=== PATIENT | female | born 1950 | race Caucasian/White ===

== ENCOUNTER → 2016-09-17 | Outpatient (CLI) | payer MEDICARE ==
--- NOTE | 2016-09-18 10:38 | MM ---
Reason for exam: screening (asymptomatic). Last mammogram was performed 1 year and 2 months ago. History: Patient is postmenopausal and is nulliparous. Family history of breast cancer in maternal aunt. Benign cyst aspiration of the right breast, 1984. Physical Findings: A clinical breast exam by your physician is recommended on an annual basis and results should be correlated with mammographic findings. MG Screening Mammo w CAD Bilateral CC and MLO view(s) were taken. Prior study comparison: July 25, 2015, bilateral MG screening mammo w CAD. October 15, 2013, bilateral digital screening mammo w/CAD. May 05, 2012, bilateral digital screening mammo w/CAD. The breast tissue is extremely dense which could obscure a lesion on mammography. Finding: There are typically benign round, regional calcifications in the posterior position of the left breast. There is no discrete abnormality. ASSESSMENT: Benign, BI-RAD 2 RECOMMENDATION: Routine screening mammogram of both breasts in 1 year.
== END | disposition home or self-care (01) ==
LOC: RADMAMWWP 09:16
PROVIDERS: ATTEND Internal Medicine
DX: Z12.31 Encounter for screening mammogram for malignant neoplasm of breast (principal)

== ENCOUNTER → 2017-10-17 | Outpatient (CLI) | payer MEDICARE ==
--- NOTE | 2017-10-21 10:18 | MM ---
Reason for exam: screening (asymptomatic). Last mammogram was performed 1 year and 1 month ago. History: Patient is postmenopausal and is nulliparous. Family history of breast cancer in maternal aunt. Benign cyst aspiration of the right breast, 1984. Physical Findings: A clinical breast exam by your physician is recommended on an annual basis and results should be correlated with mammographic findings. MG Screening Mammo w CAD Bilateral CC and MLO view(s) were taken. Prior study comparison: September 17, 2016, bilateral MG screening mammo w CAD. July 25, 2015, bilateral MG screening mammo w CAD. The breast tissue is heterogeneously dense. This may lower the sensitivity of mammography. No suspicious abnormality. No significant changes when compared with prior studies. ASSESSMENT: Negative, BI-RAD 1 RECOMMENDATION: Routine screening mammogram of both breasts in 1 year.
== END | disposition home or self-care (01) ==
LOC: RADMAMWWP 14:22
PROVIDERS: ATTEND Internal Medicine
DX: Z12.31 Encounter for screening mammogram for malignant neoplasm of breast (principal)
CPT/HCPCS: 77067

== ENCOUNTER → 2017-10-20 | Outpatient (CLI) | payer MEDICARE ==
--- NOTE | 2017-10-21 14:35 | BD ---
EXAMINATION TYPE: MG DEXA axial skeleton. DATE OF EXAM: 10/20/2017 COMPARISON: NONE CLINICAL HISTORY: Z78.0 post menopausal without hrt,N95.1 Post menopause sympt Height: 66 Weight: 126.7 FRAX RISK QUESTIONS: Alcohol (3 or more units per day): no Family History (Parent hip fracture): no Glucocorticoids (More than 3mos): no (Ex: prednisone, prednisolone, methylprednisolone, dexamethasone, and hydrocortisone). History of Fracture in Adulthood: no Secondary Osteoporosis: 1. Type 1 Diabetes: no 2. Hyperthyroidism: no 3. Menopause before 45: no 4. Malnutrition: no 5. Chronic liver disease: no Rheumatoid Arthritis: no Current Tobacco Use: no RISK FACTORS HISTORY OF: Family History of Osteoporosis: yes /mother Active: yes Diet low in dairy products/other sources of calcium: no Postmenopausal woman: 50 years old Lost more than 2 inches in height since high school: yes Frequent falls: no Adrenal Insufficiency: no MEDICATIONS: celexa, Prevacol Additional History: EXAM MEASUREMENTS: Bone mineral densitometry was performed using the [employer] System. Bone mineral density as measured about the Lumbar spine is: ----- L1-L4(G/cm2): 0.704 T Score Values are as follows: ----- L2: -4.1 ----- L3: -4.1 ----- L4: -3.9 ----- L1-L4: -4.0 Bone mineral density has: decreased -3.4 % since study of: 05.05.2012 Bone mineral density about the R hip (g/cm2): 0.679 Bone mineral density about the L hip (g/cm2): 0.615 T Score values are as follows: -----R Neck: -2.6 -----L Neck: -3.0 -----R Total: -2.8 -----L Total: -3.2 Bone mineral density has: decreased -6.7 % since study of: 05.05.2012 IMPRESSION: Findings compatible with osteoporosis and increased fracture risk. NOTE: T-SCORE=SD OF THE YOUNG ADULT MEAN.
== END ==
LOC: RADBDWWP 15:59
PROVIDERS: ATTEND Internal Medicine
DX: Z78.0 Asymptomatic menopausal state (principal); N95.1 Menopausal and female climacteric states
CPT/HCPCS: 77080

== ENCOUNTER → 2018-10-21 | Outpatient (CLI) | payer MEDICARE ==
--- NOTE | 2018-10-22 10:40 | MM ---
Reason for exam: screening (asymptomatic). Last mammogram was performed 1 year ago. History: Patient is postmenopausal and is nulliparous. Family history of breast cancer in maternal aunt. Benign cyst aspiration of the right breast, 1984. Physical Findings: A clinical breast exam by your physician is recommended on an annual basis and results should be correlated with mammographic findings. MG 3D Screening Mammo W/Cad Bilateral CC and MLO view(s) were taken. Prior study comparison: October 17, 2017, bilateral MG screening mammo w CAD. September 17, 2016, bilateral MG screening mammo w CAD. The breast tissue is extremely dense which could obscure a lesion on mammography. Benign calcifications in the left breast. No suspicious abnormality. No significant changes when compared with prior studies. ASSESSMENT: Benign, BI-RAD 2 RECOMMENDATION: Routine screening mammogram of both breasts in 1 year.
== END | disposition home or self-care (01) ==
LOC: RADMAMWWP 09:06
PROVIDERS: ATTEND Internal Medicine
DX: Z12.31 Encounter for screening mammogram for malignant neoplasm of breast (principal)
CPT/HCPCS: 77063; 77067

== ENCOUNTER → 2020-03-29 | Outpatient (CLI) | payer MEDICARE ==
--- NOTE | 2020-03-31 10:36 | MM ---
Reason for exam: screening (asymptomatic). Last mammogram was performed 1 year and 5 months ago. History: Patient is postmenopausal and is nulliparous. Family history of breast cancer in maternal aunt. Benign cyst aspiration of the right breast, 1984. Physical Findings: A clinical breast exam by your physician is recommended on an annual basis and results should be correlated with mammographic findings. MG 3D Screening Mammo W/Cad Bilateral CC, MLO, and XCCL view(s) were taken. Prior study comparison: October 21, 2018, bilateral MG 3d screening mammo w/cad. October 17, 2017, bilateral MG screening mammo w CAD. The breast tissue is extremely dense which could obscure a lesion on mammography. No significant changes when compared with prior studies. ASSESSMENT: Benign, BI-RAD 2 RECOMMENDATION: Routine screening mammogram of both breasts in 1 year.
== END | disposition home or self-care (01) ==
LOC: RADMAMWWP 13:27
PROVIDERS: ATTEND Internal Medicine
DX: Z12.31 Encounter for screening mammogram for malignant neoplasm of breast (principal)
CPT/HCPCS: 77063; 77067

== ENCOUNTER → 2020-05-18 | Outpatient (CLI) | payer MEDICARE ==
--- NOTE | 2020-05-18 15:53 | BD ---
EXAMINATION TYPE: Axial Bone Density DATE OF EXAM: 05/18/2020 COMPARISON: NONE CLINICAL HISTORY: Postmenopausal female,Screening for osteoporosis Height: 67 Weight: 127.1 FRAX RISK QUESTIONS: Alcohol (3 or more units per day): no Family History (Parent hip fracture): no Glucocorticoids (More than 3mos): no (Ex: prednisone, prednisolone, methylprednisolone, dexamethasone, and hydrocortisone). History of Fracture in Adulthood: no Secondary Osteoporosis: 1. Type 1 Diabetes: no 2. Hyperthyroidism: no 3. Menopause before 45: no 4. Malnutrition: no 5. Chronic liver disease: no Rheumatoid Arthritis: no Current Tobacco Use: no RISK FACTORS HISTORY OF: Surgery to Spine/Hip(right/left)/Wrist (right/left): surgery to lower lumbar When: Family History of Osteoporosis: yes Active: yes Diet low in dairy products/other sources of calcium: no Postmenopausal woman: 50 years old Lost more than 2 inches in height since high school: no MEDICATIONS: prevocal, vitamins, xanax as needed Additional History: EXAM MEASUREMENTS: Bone mineral densitometry was performed using the [employer] 360 System. Bone mineral density about the R hip (g/cm2): 0.662 Bone mineral density about the L hip (g/cm2): 0.569 T Score values are as follows: -----R Neck: -2.7 -----L Neck: -3.4 -----R Total: -3.1 -----L Total: -3.5 Bone mineral density has: decreased -5.4 % since study of: 10.20.2017 Bone mineral density about the L Wrist (g/cm2): 0.387 T Score values are as follows: -----Dist. R+U: -5.2 -----Prox. R+U: -4.3 -----Radius total: -4.8 Bone mineral density : baseline IMPRESSION: Osteoporosis (T Score less than -2.5). There is increased fracture risk and therapy is usually indicated based on age. Re-Screen 1-2 years. NOTE: T-SCORE=SD OF THE YOUNG ADULT MEAN.
== END | disposition home or self-care (01) ==
LOC: RADBDWWP 13:16
PROVIDERS: ATTEND Internal Medicine
DX: Z13.820 Encounter for screening for osteoporosis (principal); M81.0 Age-related osteoporosis without current pathological fracture
CPT/HCPCS: 77080

== ENCOUNTER 2020-06-18 09:43 | Emergency (ER) | payer MEDICARE ==
[2020-06-18 09:53] VITALS: RESP 18
[2020-06-18] MEDS ORDERED: SODIUM CHLORIDE 0.9% 1,000 ML IV ONE (10:26)
[2020-06-18] MEDS ORDERED: ONDANSETRON 4 MG/2 ML VIAL IVP STA (10:26)
--- NOTE | 2020-06-18 10:28 | ED ---
General Adult HPI - General Chief complaint: Upper Respiratory Infection Stated complaint: COVID+/worsening symptoms Time Seen by Provider: 06/18/20 09:57 Source: patient, RN notes reviewed, old records reviewed Mode of arrival: ambulatory Limitations: no limitations - History of Present Illness Initial comments: Patient is a pleasant 70-year-old female who presents emergency Department today with complaints of nausea and fatigue poor appetite for the past 3 days. She was diagnosed with Covid in 19 infection on Friday. Her symptoms of fatigue started on Friday. She is exposed to her elderly mother who is living in a [place] [facility] facility who tested positive for COVID 19. Patient reports she believes that she got up from her mother. Patient states that she has no respiratory issues and denies any chest pain or shortness of breath her main complaint is nausea vomiting and diarrhea. - Related Data Previous Rx's Medication Instructions Recorded Albuterol Inhaler [Ventolin Hfa 2 puff INHALATION RT-QID #1 inhaler 06/18/20 Inhaler] Ondansetron Odt [Zofran Odt] 4 mg PO Q8HR PRN #12 tab 06/18/20 Allergies Allergy/AdvReac Type Severity Reaction Status Date / Time latex Allergy Rash/Hives Verified 06/18/20 09:50 paroxetine [From Paxil] Allergy Rash/Hives Verified 06/18/20 09:50 shellfish derived [Shellfish] Allergy Rash/Hives Verified 06/18/20 09:50 tetracycline Allergy Rash/Hives Verified 06/18/20 09:50 Review of Systems ROS Statement: Those systems with pertinent positive or pertinent negative responses have been documented in the HPI. ROS Other: All systems not noted in ROS Statement are negative. Past Medical History Past Medical History: Hyperlipidemia History of Any Multi-Drug Resistant Organisms: None Reported Past Surgical History: Back Surgery Additional Past Surgical History / Comment(s): spinal fusion Past Psychological History: Anxiety Smoking Status: Never smoker Past Alcohol Use History: Occasional Past Drug Use History: Marijuana General Exam - General Exam Comments Initial Comments: 7-year-old female. Alert and oriented. Limitations: no limitations General appearance: alert Head exam: Present: atraumatic, normocephalic, normal inspection Eye exam: Present: normal appearance, PERRL, EOMI. Absent: scleral icterus, conjunctival injection, periorbital swelling ENT exam: Present: normal exam, mucous membranes moist Neck exam: Present: normal inspection. Absent: tenderness, meningismus, lymphadenopathy Respiratory exam: Present: normal lung sounds bilaterally. Absent: respiratory distress, wheezes, rales, rhonchi, stridor Cardiovascular Exam: Present: regular rate, normal rhythm, normal heart sounds. Absent: systolic murmur, diastolic murmur, rubs, gallop, clicks GI/Abdominal exam: Present: soft, normal bowel sounds. Absent: distended, tenderness, guarding, rebound, rigid Extremities exam: Present: normal inspection, full ROM, normal capillary refill. Absent: tenderness, pedal edema, joint swelling, calf tenderness Back exam: Present: normal inspection Neurological exam: Present: alert, oriented X3, CN II-XII intact Psychiatric exam: Present: normal affect, normal mood Skin exam: Present: warm, dry, intact, normal color. Absent: rash Course Vital Signs 06/18/20 09:51 Temperature 98.8 F Pulse Rate 83 Respiratory 18 Rate Blood Pressure 146/90 O2 Sat by Pulse 98 Oximetry - Reevaluation(s) Reevaluation #1: 06/18/20 11:34 Patient's improved after Zofran. Informed of developing infiltrate on chest x- ray however she denies any respiratory symptoms and oxygen is 100% on room air. Medical Decision Making - Medical Decision Making 70-year-old female presents emergency department today with complaints of difficulty in eating poor appetite and nausea after being diagnosed with Covid. Patient denies respiratory symptoms. She has 100% on room air. She otherwise is appearing well and doesn't have improvement after IV fluids and Zofran. Patient's chest x-ray showed concern for developing right infiltrate. Again she has no respiratory symptoms. His informed her of these results. I discussed we can put the Patient on symptomatic treatment and she is improved after IV Zofran. Patient has history of plan will comply. Return parameters were discussed. - Lab Data Result diagrams: 06/18/20 10:28 06/18/20 10:28 Lab Results 06/18/20 06/18/20 06/18/20 Range/Units 10:28 10:28 10:28 WBC 6.4 (3.8-10.6) k/uL RBC 4.97 (3.80-5.40) m/uL Hgb 15.2 (11.4-16.0) gm/dL Hct 44.0 (34.0-46.0) % MCV 88.6 (80.0-100.0) fL MCH 30.5 (25.0-35.0) pg MCHC 34.5 (31.0-37.0) g/dL RDW 12.2 (11.5-15.5) % Plt Count 208 (150-450) k/uL MPV 7.8 Neutrophils % 82 % Lymphocytes % 7 % Monocytes % 8 % Eosinophils % 1 % Basophils % 1 % Neutrophils # 5.2 (1.3-7.7) k/uL Lymphocytes # 0.5 L (1.0-4.8) k/uL Monocytes # 0.5 (0-1.0) k/uL Eosinophils # 0.0 (0-0.7) k/uL Basophils # 0.1 (0-0.2) k/uL PT 9.7 (9.0-12.0) sec INR 0.9 (<1.2) APTT 25.1 (22.0-30.0) sec Sodium 129 L (137-145) mmol/L Potassium 3.8 (3.5-5.1) mmol/L Chloride 97 L (98-107) mmol/L Carbon Dioxide 24 (22-30) mmol/L Anion Gap 8 mmol/L BUN 13 (7-17) mg/dL Creatinine 0.41 L (0.52-1.04) mg/dL Est GFR (CKD-EPI)AfAm >90 (>60 ml/min/1.73 sqM) Est GFR (CKD-EPI)NonAf >90 (>60 ml/min/1.73 sqM) Glucose 122 H (74-99) mg/dL Plasma Lactic Acid Marcelino (0.7-2.0) mmol/L Calcium 9.4 (8.4-10.2) mg/dL Magnesium 2.0 (1.6-2.3) mg/dL Total Bilirubin 0.7 (0.2-1.3) mg/dL AST 32 (14-36) U/L ALT 33 (4-34) U/L Alkaline Phosphatase 47 (38-126) U/L Lactate Dehydrogenase 507 (313-618) U/L C-Reactive Protein <5.0 (<10.0) mg/L Total Protein 7.4 (6.3-8.2) g/dL Albumin 4.5 (3.5-5.0) g/dL 06/18/20 Range/Units 10:28 WBC (3.8-10.6) k/uL RBC (3.80-5.40) m/uL Hgb (11.4-16.0) gm/dL Hct (34.0-46.0) % MCV (80.0-100.0) fL MCH (25.0-35.0) pg MCHC (31.0-37.0) g/dL RDW (11.5-15.5) % Plt Count (150-450) k/uL MPV Neutrophils % % Lymphocytes % % Monocytes % % Eosinophils % % Basophils % % Neutrophils # (1.3-7.7) k/uL Lymphocytes # (1.0-4.8) k/uL Monocytes # (0-1.0) k/uL Eosinophils # (0-0.7) k/uL Basophils # (0-0.2) k/uL PT (9.0-12.0) sec INR (<1.2) APTT (22.0-30.0) sec Sodium (137-145) mmol/L Potassium (3.5-5.1) mmol/L Chloride (98-107) mmol/L Carbon Dioxide (22-30) mmol/L Anion Gap mmol/L BUN (7-17) mg/dL Creatinine (0.52-1.04) mg/dL Est GFR (CKD-EPI)AfAm (>60 ml/min/1.73 sqM) Est GFR (CKD-EPI)NonAf (>60 ml/min/1.73 sqM) Glucose (74-99) mg/dL Plasma Lactic Acid Marcelino 1.0 (0.7-2.0) mmol/L Calcium (8.4-10.2) mg/dL Magnesium (1.6-2.3) mg/dL Total Bilirubin (0.2-1.3) mg/dL AST (14-36) U/L ALT (4-34) U/L Alkaline Phosphatase (38-126) U/L Lactate Dehydrogenase (313-618) U/L C-Reactive Protein (<10.0) mg/L Total Protein (6.3-8.2) g/dL Albumin (3.5-5.0) g/dL 06/18/20 10:40 EKG performed at 10:07 shows possible left atrial enlargement. Normal sinus rhythm. Left axis deviation. RSR QR pattern in V1 suggesting right ventricular conduction delay. Inferior infarct age-indeterminate. Anterolateral infarct age undetermined. Abnormal EKG. Ventricular rate of 60 bpm. Was 164 ms. QS duration is 90 ms. QT QTc is 416/442 ms. - Radiology Data Radiology results: report reviewed Increased density noted in the right medial lung base may reflect developing infiltrate. Correlate clinically. Disposition Clinical Impression: COVID-19, Nausea Disposition: HOME SELF-CARE Condition: Good Instructions (If sedation given, give patient instructions): Acute Nausea and Vomiting (ED) Additional Instructions: Patient advised to purchase pulse oximeter at home and to monitor for any worsening respiratory conditions including severe shortness of breath or severe coughing you can to return for reevaluation. Return if pulse ox is below 90%. Self quarantine and avoid contact with others. Take the medications as p rescribed. Have close follow-up with primary care doctor. Please return to the ER physician any alarming signs or symptoms occur. Prescriptions: Albuterol Inhaler [Ventolin Hfa Inhaler] 2 puff INHALATION RT-QID #1 inhaler Ondansetron Odt [Zofran Odt] 4 mg PO Q8HR PRN #12 tab PRN Reason: Nausea Is patient prescribed a controlled substance at d/c from ED?: No Referrals: Sandra Wright MD [Primary Care Provider] - 1-2 days Time of Disposition: 11:37
--- NOTE | 2020-06-18 10:45 | XR ---
EXAMINATION TYPE: XR chest 1V portable DATE OF EXAM: 06/18/2020 HISTORY: Shortness of breath. COMPARISON: None. TECHNIQUE: Single view of the chest is submitted. FINDINGS: Demonstrated are scattered senescent parenchymal change. Increased density noted right medial lung base may reflect developing infiltrate. Correlate clinicall y. The heart is stable. Hilar and mediastinal structures are within normal limits. Degenerative changes are seen of the dorsal spine. IMPRESSION: 1. Increased density noted right medial lung base may reflect developing infiltrate. Correlate clini dustin.
[2020-06-18 10:50] LABS: INR 0.9 (<1.2); Partial Thromboplastin Time 25.1 sec (22.0-30.0); Prothrombin Time 9.7 sec (9.0-12.0)
[2020-06-18 10:53] LABS: ALT 33 U/L (4-34); AST 32 U/L (14-36); African American GFR (CKD) >90 (>60 ml/min/1.73 sqM); Albumin 4.5 g/dL (3.5-5.0); Alkaline Phosphatase 47 U/L (38-126); Anion Gap 8 mmol/L; Blood Urea Nitrogen 13 mg/dL (7-17); C Reactive Protein <5.0 mg/L (<10.0); Calcium 9.4 mg/dL (8.4-10.2); Carbon Dioxide 24 mmol/L (22-30); Chloride 97 mmol/L (98-107); Glucose 122 mg/dL (74-99); LDH 507 U/L (313-618); Non-African American GFR(CKD) >90 (>60 ml/min/1.73 sqM); Potassium 3.8 mmol/L (3.5-5.1); Sodium 129 mmol/L (137-145); Total Bilirubin 0.7 mg/dL (0.2-1.3); Total Protein 7.4 g/dL (6.3-8.2)
[2020-06-18 10:57] LABS: Basophils # (A) 0.1 k/uL (0-0.2); Basophils % (A) 1 %; Eosinophils % (A) 1 %; HGB 15.2 gm/dL (11.4-16.0); Lymphocytes # (A) 0.5 k/uL (1.0-4.8); Lymphocytes % (A) 7 %; MCH 30.5 pg (25.0-35.0); MCHC 34.5 g/dL (31.0-37.0); MCV 88.6 fL (80.0-100.0); Mean Platelet Volume 7.8; Monocytes # (A) 0.5 k/uL (0-1.0); Monocytes % (A) 8 %; Neutrophils # (A) 5.2 k/uL (1.3-7.7); Neutrophils % (A) 82 %; Platelet Count 208 k/uL (150-450); RBC 4.97 m/uL (3.80-5.40); RDW 12.2 % (11.5-15.5); WBC 6.4 k/uL (3.8-10.6)
[2020-06-18 12:03] VITALS: BP 148/69; PULSE 68; TEMP 98.3
[2020-06-18 17:36] LABS: Ferritin 140.4 ng/mL (10.0-291.0)
== END 2020-06-18 12:02 | disposition home or self-care (01) ==
LOC: EC 09:43
DX: U07.1 COVID-19 (principal); R11.0 Nausea; Z91.040 Latex allergy status; Z91.013 Allergy to seafood; Z88.1 Allergy status to other antibiotic agents; Z88.8 Allergy status to other drugs, medicaments and biological substances
CPT/HCPCS: 36415; 93005; 80053; 82728; 83605; 83615; 83735; 85025; 85610; 85730; 86140; 87040; 84145; 71045; 99284; 96374; 96361; J2405

== ENCOUNTER → 2021-04-09 | Outpatient (CLI) | payer MEDICARE ==
--- NOTE | 2021-04-10 12:30 | MM ---
Reason for exam: screening (asymptomatic). Last mammogram was performed 1 year ago. History: Patient is postmenopausal and is nulliparous. Family history of breast cancer in maternal aunt. Benign cyst aspiration of the right breast, 1984. Took hormonal contraceptives for 3 months. Physical Findings: A clinical breast exam by your physician is recommended on an annual basis and results should be correlated with mammographic findings. MG 3D Screening Mammo W/Cad Bilateral CC and MLO view(s) were taken. Prior study comparison: March 29, 2020, bilateral MG 3d screening mammo w/cad. October 21, 2018, bilateral MG 3d screening mammo w/cad. The breast tissue is extremely dense which could obscure a lesion on mammography. There are benign appearing round calcifications in the left breast. There is no discrete abnormality. ASSESSMENT: Benign, BI-RAD 2 RECOMMENDATION: Routine screening mammogram of both breasts in 1 year.
== END | disposition home or self-care (01) ==
LOC: RADMAMWWP 16:28
PROVIDERS: ATTEND Internal Medicine
DX: Z12.31 Encounter for screening mammogram for malignant neoplasm of breast (principal)
CPT/HCPCS: 77063; 77067

== ENCOUNTER 2021-07-10 08:50 | Day surgery (SDC) | payer MEDICARE ==
[2021-07-04 15:24] VITALS: BMI 18.5
[~2021-07-10 08:50] MED LIST: LACTATED RINGERS 1,000 ML IV SCH; LIDOCAINE 1% (10MG/ML) FOR IV START INTRADERMA PRN
[2021-07-10 09:21] VITALS: TEMP 97.9
[2021-07-10] MEDS ORDERED: LACTATED RINGERS 1,000 ML IV ONE (09:23)
[2021-07-10] MEDS ORDERED: PROPOFOL 10 MG/ML 20 ML VIAL IV ONE (09:40)
--- NOTE | 2021-07-10 09:48 | P.GSHP ---
History of Present Illness H&P Date: 07/10/21 Chief Complaint: Abnormal stool test 71-year-old female here today for colonoscopy. Had a stool test that was abnormal. She does not see any rectal bleeding. Last colonoscopy 3.5 years ago. Had a small polyp removed. Biopsies did not show any polypoid tissue. Past Medical History Past Medical History: Hyperlipidemia, Hypertension History of Any Multi-Drug Resistant Organisms: None Reported Past Surgical History: Appendectomy, Back Surgery, Cholecystectomy, Tonsillectomy, Tubal Ligation Additional Past Surgical History / Comment(s): spinal fusion, colonoscopy, R knee scope. Past Anesthesia/Blood Transfusion Reactions: No Reported Reaction Smoking Status: Former smoker - Past Family History Mother Family Medical History: No Reported History Medications and Allergies Home Medications Medication Instructions Recorded Confirmed Type ALPRAZolam [Xanax] 1 tab PO DAILY PRN 07/04/21 07/04/21 History Aspirin 81 mg PO DAILY 07/04/21 07/04/21 History Cholecalciferol [Vitamin D3 (10 10 mcg PO DAILY 07/04/21 07/04/21 History Mcg = 400 Iu)] Garlic 1 each PO DAILY 07/04/21 07/04/21 History Hydroxychloroquine Sulfate 200 mg PO DAILY 07/04/21 07/04/21 History [Plaquenil] Losartan [Cozaar] 50 mg PO DAILY 07/04/21 07/04/21 History Multivitamins, Thera [Multivitamin 1 tab PO DAILY 07/04/21 07/04/21 History (formulary)] Naproxen Sodium [Aleve] 220 mg PO DAILY 07/04/21 07/04/21 History Ubidecarenone [Co Q-10] 100 mg PO DAILY 07/04/21 07/04/21 History Allergies Allergy/AdvReac Type Severity Reaction Status Date / Time latex Allergy Rash/Hives Verified 07/04/21 15:09 paroxetine [From Paxil] Allergy Rash/Hives Verified 07/04/21 15:09 shellfish derived [Shellfish] Allergy Rash/Hives Verified 07/04/21 15:09 tetracycline Allergy Rash/Hives Verified 07/04/21 15:09 Surgical - Exam Vital Signs Temp Pulse Resp BP Pulse Ox 97.9 F 74 18 134/84 98 07/10/21 09:20 07/10/21 09:20 07/10/21 09:20 07/10/21 09:20 07/10/21 09:20 Physical exam: General: Well-developed, well-nourished HEENT: Normocephalic, sclerae nonicteric Abdomen: Nontender, nondistended Extremities: No edema Neuro: Alert and oriented Assessment and Plan (1) Abnormal stool test Narrative/Plan: Will proceed with colonoscopy at this time. Current Visit: Yes Status: Acute Code(s): R19.5 - OTHER FECAL ABNORMALITIES SNOMED Code(s): 873168520
--- NOTE | 2021-07-10 10:20 | P.PCN ---
Date of Procedure: 07/10/21 Procedure(s) Performed: PREOPERATIVE DIAGNOSIS: Abnormal stool test POSTOPERATIVE DIAGNOSIS: Ascending colon polyp 2, transverse colon polyp, extensive diverticulosis with tortuous colon PROCEDURE: Colonoscopy with snare polypectomy ANESTHESIA: MAC SURGEON: Tim Soria M.D. SPECIMENS: Polyps ENDOSCOPIC PROCEDURE: The patient was placed on the endoscopy table in the left decubitus position. The Olympus colonoscope was inserted into the anus and passed under direct visualization to the base of the cecum. The appendiceal orifice was visualized. From that point the scope was slowly withdrawn inspecting all surfaces carefully. There were no neoplastic inflammatory or polypoid lesions throughout the cecum. The patient's prep on the right side of the colon was slightly suboptimal. In the ascending colon 2 small polyps were seen and removed using the snare with cautery technique. In the transverse colon another small polyp was removed in a similar fashion. The remainder of the transverse descending sigmoid and rectum were free of any neoplastic or polypoid lesions. The patient had extensive left-sided diverticulosis. Digital rectal examination was normal. The patient was taken to the recovery room in stable condition per anesthesia guidelines. RECOMMENDATIONS: Await biopsy results. Follow-up colonoscopy 5 years.
[2021-07-10 10:41] VITALS: BP 149/69; PULSE 56; RESP 16
== END 2021-07-10 11:07 | disposition home or self-care (01) ==
LOC: ORWHC2ENDO 08:50
PROVIDERS: ATTEND Surgery
DX: D12.2 Benign neoplasm of ascending colon (principal); D12.3 Benign neoplasm of transverse colon; K57.30 Diverticulosis of large intestine without perforation or abscess without bleeding; Z86.010 Personal history of colon polyps; I10 Essential (primary) hypertension; E78.5 Hyperlipidemia, unspecified; Z90.49 Acquired absence of other specified parts of digestive tract; Z87.891 Personal history of nicotine dependence; Z79.82 Long term (current) use of aspirin; Z88.8 Allergy status to other drugs, medicaments and biological substances; Z88.1 Allergy status to other antibiotic agents; Z91.040 Latex allergy status; Z91.013 Allergy to seafood; Z79.899 Other long term (current) drug therapy; Z98.890 Other specified postprocedural states; Z90.89 Acquired absence of other organs; Z98.51 Tubal ligation status; Z98.1 Arthrodesis status
CPT/HCPCS: 88305; 45385; J2704

== ENCOUNTER → 2021-10-23 | Outpatient (CLI) | payer MEDICARE ==
--- NOTE | 2021-10-23 16:21 | MR ---
EXAMINATION TYPE: MR iac wo con DATE OF EXAM: 10/23/2021 COMPARISON: NONE HISTORY: Rt side hearing loss, acoustic nerve disorder TECHNIQUE: Multiplanar, multisequence imaging of the brain and brainstem is performed without IV cont rast only as patient refused contrast. Exam performed under acoustic nerve disorder protocol. FINDINGS: Diffusion weighted images demonstrate no evidence of a recent infarct or other diffusion abnormality. There is mild ventricular and sulcal prominence. Occasional scattered focus of T2 hyperintensity seen throughout the white matter bilaterally. Lesions nonspecific in appearance and distribution. Midline structures demonstrate normal morphology. The craniocervical junction appears within normal limits. Normal vascular flow voids are present. Dominant left vertebral artery incidentally noted. Mi ld/moderate mucosal thickening involving the frontal sinuses and anterior ethmoid sinuses along with inferior bilateral maxillary sinuses. Globes are intact bilaterally. Some patchy fluid signal in the mastoid air cells bilaterally greater on the right. Vestibulocochlear complexes appear symmetric and within normal limits on noncontrast imaging. IMPRESSION: 1. Possible mild right greater than left mastoiditis, correlate clinically. Suboptimal study without IV contrast to exclude cerebellopontine angle mass. 2. Mild diffuse age-related cerebral atrophy and chronic small vessel ischemic change. 3. Mild to moderate chronic paranasal sinus disease as detailed above.
== END | disposition home or self-care (01) ==
LOC: RADMRIMAIN 12:35
PROVIDERS: ATTEND Otolaryngology
DX: G31.9 Degenerative disease of nervous system, unspecified (principal); I67.82 Cerebral ischemia
CPT/HCPCS: 70551

== ENCOUNTER → 2022-05-21 | Outpatient (CLI) | payer MEDICARE ==
--- NOTE | 2022-05-21 16:40 | BD ---
EXAMINATION TYPE: Axial Bone Density DATE OF EXAM: 05/21/2022 COMPARISON: 05/18/2020 CLINICAL HISTORY: 72 years year old Female. ICD-10 CODE: M81.0 AGE-RELATED OSTEOPOROSIS W/O CURRENT PATHOLOGICAL FRAC Height: 5FT 6.25IN Weight: 124.5 FRAX RISK QUESTIONS: Alcohol (3 or more units per day): NO Family History (Parent hip fracture): YES, FATHER Glucocorticoids (More than 3mos): NO (Ex: prednisone, prednisolone, methylprednisolone, dexamethasone, and hydrocortisone). History of Fracture in Adulthood: NO Secondary Osteoporosis: 1. Type 1 Diabetes: NO 2. Hyperthyroidism: NO 3. Menopause before 45: NO 4. Malnutrition: NO 5. Chronic liver disease: NO Rheumatoid Arthritis: NO Current Tobacco Use: NO (HX OF SMOKING) RISK FACTORS HISTORY OF: Hip Fracture (Right/Left): NO Spine Fracture: NO History of Wrist Fracture: NO Surgery to Spine/Hip(right/left)/Wrist (right/left): YES, PRIOR FUSION OF L5-S1, When: 2019 Family History of Osteoporosis: YES, MOTHER, FATHER, BROTHER, MATERNAL AUNTS (X2) Active: YES Diet low in dairy products/other sources of calcium: YES Postmenopausal woman: YES Lost more than 2 inches in height since high school: YES Frequent falls: NO Poor Health: BETTER THAN GOOD Hyperparathyroidism: NO Adrenal Insufficiency: NO MEDICATIONS: Prednisone or other steroids: NO Thyroid Medications: NO Osteoporosis Medications: NO Additional Medications: PROVOCOL, CHOLESTEROL MEDS (X2), ANXIETY MEDS, VITAMIN D, MULTIVITAMIN WITH C ALCIUM, VIT K, COLLAGEN, ZINC, MAGNESIUM Additional History: EXAM MEASUREMENTS: Bone mineral densitometry was performed using the [employer] System. Bone mineral density about the R hip (g/cm2): 0.658 Bone mineral density about the L hip (g/cm2): 0.594 T Score values are as follows: -----R Neck: -2.7 -----L Neck: -3.2 -----R Total: -3.2 -----L Total: -3.5 Bone mineral density has: DECREASED -1.7% since study of: 05/18/2020 Bone mineral density about the L Wrist (g/cm2): 0.377 T Score values are as follows: -----Dist. R+U: -4.9 -----Prox. R+U: -4.6 -----Radius total: -4.9 Bone mineral density has: DECREASED -6.4% since study of: 05/18/2020 FRAX%s: The graph provided illustrates a 16.2% chance for a major osteoporotic fx and a 11.0% chance for the hips probability for fx in 10 years time. IMPRESSION: Osteoporosis (T Score less than -2.5). There is increased fracture risk and therapy is usually indicated based on age. Re-Screen 1-2 years. NOTE: T-SCORE=SD OF THE YOUNG ADULT MEAN.
--- NOTE | 2022-05-22 07:45 | MM ---
Reason for Exam: Screening (asymptomatic). Last mammogram was performed 1 year(s) and 1 month(s) ago. Patient History: Menarche at age 17. Patient has no children. Postmenopausal. Patient has history of breast feeding. Hormonal Contraceptives for 3 months. 1985, Benign Cyst Aspiration on the right side. Maternal aunt had breast cancer. Risk Values: Cassidy 5 year model risk: 1.8%. NCI Lifetime model risk: 4.6%. Prior Study Comparison: 10/21/2018 Bilateral Screening Mammogram, [facility]. 03/29/2020 Bilateral Screening Mammogram, [facility]. 04/09/2021 Bilateral Screening Mammogram, [facility]. Tissue Density: The breast tissue is extremely dense which could obscure a lesion on mammography. Findings: Analyzed By CAD. There is no suspicious group of microcalcifications or new suspicious mass in either breast. Overall Assessment: Negative, BI-RAD 1 Management: Screening Mammogram of both breasts in 1 year. A clinical breast exam by your physician is recommended on an annual basis and results should be correlated with mammographic findings. Electronically signed and approved by: Gordy Suresh M.D. Radiologis
== END | disposition home or self-care (01) ==
LOC: RADMAMWWP 10:15
PROVIDERS: ATTEND Family Medicine
DX: Z12.31 Encounter for screening mammogram for malignant neoplasm of breast (principal); M81.0 Age-related osteoporosis without current pathological fracture; Z78.0 Asymptomatic menopausal state; Z80.3 Family history of malignant neoplasm of breast; Z87.891 Personal history of nicotine dependence
CPT/HCPCS: 77063; 77067; 77080

== ENCOUNTER → 2023-04-07 | Outpatient (CLI) | payer MEDICARE ==
[2023-04-07 20:20] LABS: Clam IgE <0.10 kU/L; Codfish IgE <0.10 kU/L; Egg White IgE <0.10 kU/L; Peanut IgE <0.10 kU/L; Scallop IgE <0.10 kU/L; Shrimp IgE <0.10 kU/L; Soybean IgE <0.10 kU/L; Walnut IgE (Food) <0.10 kU/L
[2023-04-08 11:33] LABS: Gluten IgE Class CLASS 0; Oat IgE Class CLASS 0; Yeast Bakers/Brew IgE <0.10 kU/L (<0.10); Yeast Bakers/Brew IgE Class CLASS 0
== END | disposition home or self-care (01) ==
LOC: LABWHC1 10:42
PROVIDERS: ATTEND Otolaryngology
DX: J30.89 Other allergic rhinitis (principal)
CPT/HCPCS: 36415; 82785; 86001; 86003

== ENCOUNTER 2023-04-15 10:38 | Day surgery (SDC) | payer MEDICARE ==
[2023-04-10 13:28] VITALS: BMI 18.8
[2023-04-15] MEDS ORDERED: PROPOFOL 10 MG/ML 20 ML VIAL IV ONE (11:33)
[2023-04-15] MEDS ORDERED: LIDOCAINE 1% INJ 10MG/ML (20 ML MDV) ONE (11:33)
[2023-04-15 11:37] VITALS: TEMP 97.7
--- NOTE | 2023-04-15 11:37 | P.GSHP ---
History of Present Illness H&P Date: 04/15/23 Chief Complaint: Nausea vomiting 73-year-old here today for EGD. Patient with intermittent episodes of nausea and vomiting. Has been somewhat better lately. No dysphagia. Mild GERD. Past Medical History Past Medical History: Hyperlipidemia History of Any Multi-Drug Resistant Organisms: None Reported Past Surgical History: Adenoidectomy, Back Surgery, Cholecystectomy, Orthopedic Surgery, Tonsillectomy, Tubal Ligation Additional Past Surgical History / Comment(s): spinal fusion l5 s1,nanette bunionectomy, right knee arthroscopy, 2 titanium screws Additional Past Anesthesia/Blood Transfusion Reaction / Comment(s): no blood transfusion Smoking Status: Current some day smoker Medications and Allergies Home Medications Medication Instructions Recorded Confirmed Type ALPRAZolam [Xanax] 1 tab PO DAILY PRN 07/04/21 04/10/23 History Aspirin 81 mg PO DAILY 07/04/21 04/10/23 History Cholecalciferol [Vitamin D3 (10 10 mcg PO DAILY 07/04/21 04/10/23 History Mcg = 400 Iu)] Garlic 1 each PO DAILY 07/04/21 04/10/23 History Multivitamins, Thera [Multivitamin 1 tab PO DAILY 07/04/21 04/10/23 History (formulary)] Naproxen Sodium [Aleve] 220 mg PO DAILY 07/04/21 04/10/23 History Ubidecarenone [Co Q-10] 100 mg PO DAILY 07/04/21 04/10/23 History Ezetimibe [Zetia] 10 mg PO DAILY 04/10/23 04/10/23 History Pravastatin Sodium [Pravachol] 40 mg PO DAILY 04/10/23 04/10/23 History Allergies Allergy/AdvReac Type Severity Reaction Status Date / Time latex Allergy Rash/Hives Verified 04/15/23 11:14 paroxetine [From Paxil] Allergy Rash/Hives Verified 04/15/23 11:14 shellfish derived [Shellfish] Allergy Rash/Hives Verified 04/15/23 11:14 tetracycline Allergy Rash/Hives Verified 04/15/23 11:14 Surgical - Exam Vital Signs Temp Pulse Resp BP Pulse Ox 97.7 F 68 16 182/92 98 04/15/23 11:18 04/15/23 11:18 04/15/23 11:18 04/15/23 11:18 04/15/23 11:18 Physical exam: General: Well-developed, well-nourished HEENT: Normocephalic, sclerae nonicteric Abdomen: Nontender, nondistended Extremities: No edema Neuro: Alert and oriented Assessment and Plan (1) Nausea & vomiting Narrative/Plan: Will proceed with EGD Current Visit: Yes Status: Acute Code(s): R11.2 - NAUSEA WITH VOMITING, UNSPECIFIED SNOMED Code(s): 34733233
--- NOTE | 2023-04-15 11:49 | P.PCN ---
Date of Procedure: 04/15/23 Procedure(s) Performed: Preoperative Dx: Nausea vomiting Postoperative Dx: Gastritis, Loaiza's esophagus Procedure: EGD with Bx Anesthesia: Sedation Endoscopist: Dr. Soria Specimens: Antrum, Loaiza's Endoscopic Procedure: The patient was on the endoscopy table in the left decubitus position. The Olympus gastroscope was inserted into the oropharynx and passed under direct visualization to the region of the third portion of the duodenum. From that point the scope was slowly withdrawn inspecting all surfaces carefully. There were no neoplastic inflammatory or polypoid lesions throughout the duodenum. The pylorus was widely patent. The stomach was carefully inspected. There was gastritis present with edema and erythema of the mucosa noted. A biopsy of the antrum took place to rule out H. pylori. Retroflexion revealed a normal hiatus. The esophagus was then carefully examined. There was a short segment of Loaiza's esophagus present. There was a single linear salmon-colored portion of mucosa 2 cm in length proximal to the GE junction. Biopsies were taken. The remainder the esophagus appear normal. The patient was then taken to the recovery room in stable condition per anesthesia guidelines. Recommendations: Await biopsy results. Begin antiacid therapy.
[2023-04-15 12:35] VITALS: BP 161/90; PULSE 65; RESP 16
== END 2023-04-15 12:22 | disposition home or self-care (01) ==
LOC: ORWHC2ENDO 10:38
PROVIDERS: ATTEND Surgery
DX: K29.50 Unspecified chronic gastritis without bleeding (principal); K22.70 Barrett's esophagus without dysplasia; K21.00 Gastro-esophageal reflux disease with esophagitis, without bleeding; E78.5 Hyperlipidemia, unspecified; F41.9 Anxiety disorder, unspecified; F17.200 Nicotine dependence, unspecified, uncomplicated; Z91.040 Latex allergy status; Z90.49 Acquired absence of other specified parts of digestive tract; Z79.82 Long term (current) use of aspirin; Z79.899 Other long term (current) drug therapy; Z91.013 Allergy to seafood; Z88.1 Allergy status to other antibiotic agents; Z88.8 Allergy status to other drugs, medicaments and biological substances
CPT/HCPCS: 88305; 43239; J2001; J2704

== ENCOUNTER → 2023-04-18 | Outpatient (CLI) | payer MEDICARE ==
--- NOTE | 2023-04-18 14:09 | CT ---
EXAMINATION TYPE: CT abdomen pelvis wo con DATE OF EXAM: 04/18/2023 COMPARISON: None HISTORY: Left lower quadrant pain for 30 hours Scanned by DLP 492.20 STAT hold and call CT DLP: DLP 492.20 mGycm Automated exposure control for dose reduction was used. TECHNIQUE: Helical acquisition of images was performed from the lung bases through the pelvis. FINDINGS: LUNG BASES: 3 mm subpleural nodule right lower lobe. LIVER/GB: Hypodensity involving the liver measuring 3 mm too small to characterize. Cystectomy change s are seen. A larger hypodensity in the right measures 6 Hounsfield units and a 1 cm. PANCREAS: No significant abnormality is seen. SPLEEN: No significant abnormality is seen. ADRENALS: 1 cm left adrenal nodule is nonspecific but most benign adenoma. KIDNEYS: No significant abnormality is seen. URINARY BLADDER: No significant abnormality is seen. ADENOPATHY: None visualized. OSSEOUS STRUCTURES: Diffuse osteopenia and multilevel hypertrophic degenerative changes. Postsurgica l changes L5-S1 with grade 1 anterolisthesis of L4-5 and L5-S1. BOWEL: Bowel gas pattern is nonspecific. Changes of diverticulosis but no diagnostic evidence of les ions. Appendix normal. Small hiatal hernia. OTHER: Postsurgical changes in pelvis. No sizable free fluid. Atherosclerotic change aorta. No evidence of aneurysm. IMPRESSION: 1. DIVERTICULOSIS. THERE IS MINIMAL ATTENUATION IN THE LEFT LOWER QUADRANT ALONG THE ANTERIOR FAT. A MILD DIVERTICULITIS IN THE DIFFERENTIAL DIAGNOSIS. 2. NORMAL APPENDIX. 3. NO HYDRONEPHROSIS OR NEPHROLITHIASIS. 4. SMALL HIATAL HERNIA.
[2023-04-18 14:11] LABS: Basophils % (A) 0 %; Eosinophils # (A) 0.2 k/uL (0-0.7); Eosinophils % (A) 2 %; HCT 43.1 % (34.0-46.0); HGB 14.6 gm/dL (11.4-16.0); Lymphocytes # (A) 1.3 k/uL (1.0-4.8); Lymphocytes % (A) 17 %; MCHC 33.9 g/dL (31.0-37.0); MCV 91.4 fL (80.0-100.0); Mean Platelet Volume 7.9; Monocytes # (A) 0.4 k/uL (0-1.0); Monocytes % (A) 5 %; Neutrophils # (A) 5.8 k/uL (1.3-7.7); Neutrophils % (A) 74 %; Platelet Count 232 k/uL (150-450); RBC 4.71 m/uL (3.80-5.40); RDW 12.6 % (11.5-15.5); WBC 7.8 k/uL (3.8-10.6)
[2023-04-18 15:18] LABS: ALT 21 U/L (4-34); AST 27 U/L (14-36); African American GFR (CKD) >90 (>60 ml/min/1.73 sqM); Albumin 4.6 g/dL (3.5-5.0); Albumin/Globulin Ratio 1.6; Alkaline Phosphatase 54 U/L (38-126); Anion Gap 8 mmol/L; Blood Urea Nitrogen 22 mg/dL (7-17); Calcium 9.8 mg/dL (8.4-10.2); Carbon Dioxide 26 mmol/L (22-30); Chloride 102 mmol/L (98-107); Globulin 2.8 g/dL; Glucose 104 mg/dL (74-99); Non-African American GFR(CKD) >90 (>60 ml/min/1.73 sqM); Potassium 4.7 mmol/L (3.5-5.1); Sodium 136 mmol/L (137-145); Total Bilirubin 0.7 mg/dL (0.2-1.3); Total Protein 7.4 g/dL (6.3-8.2)
== END | disposition home or self-care (01) ==
LOC: RADCTMAIN 13:13
PROVIDERS: ATTEND Family Medicine
DX: K44.9 Diaphragmatic hernia without obstruction or gangrene (principal); K57.30 Diverticulosis of large intestine without perforation or abscess without bleeding
CPT/HCPCS: 74176; 80053; 85025

== ENCOUNTER → 2023-05-13 | Outpatient (CLI) | payer MEDICARE ==
--- NOTE | 2023-05-15 15:43 | MM ---
Reason for Exam: Screening (asymptomatic). Last screening mammogram was performed 12 month(s) ago. Patient History: Menarche at age 17. Patient has no children. Postmenopausal. Patient has history of breast feeding. Hormonal Contraceptives for 3 months. 1985, Benign Cyst Aspiration on the right side. Maternal aunt had breast cancer. Risk Values: Cassidy 5 year model risk: 1.8%. NCI Lifetime model risk: 4.4%. Prior Study Comparison: 03/29/2020 Bilateral Screening Mammogram, [facility]. 04/09/2021 Bilateral Screening Mammogram, [facility]. 05/21/2022 Bilateral MG 3D screening mammo w/cad, [facility]. Tissue Density: The breast tissue is extremely dense which could obscure a lesion on mammography. Findings: Analyzed By CAD. Pattern appears stable. Benign calcification is within the left breast. No suspicious groups of microcalcifications, spiculated or lobular masses, architectural distortion or other secondary signs of malignancy are mammographically apparent. Overall Assessment: Benign, BI-RAD 2 Management: Screening Mammogram of both breasts in 1 year. A negative mammogram report should not preclude additional follow up of suspicious palpable abnormalities. Patient should continue monthly self breast exam. A clinical breast exam by your physician is recommended on an annual basis and results should be correlated with mammographic findings. Electronically signed and approved by: Danny Daniels D.O. Radiologis
== END | disposition home or self-care (01) ==
LOC: RADMAMWWP 09:54
PROVIDERS: ATTEND Family Medicine
DX: Z12.31 Encounter for screening mammogram for malignant neoplasm of breast (principal); Z78.0 Asymptomatic menopausal state; Z80.3 Family history of malignant neoplasm of breast
CPT/HCPCS: 77063; 77067

== ENCOUNTER → 2023-08-05 | Outpatient (CLI) | payer MEDICARE ==
--- NOTE | 2023-08-05 12:02 | XR ---
EXAMINATION TYPE: XR chest 2V DATE OF EXAM: 08/05/2023 COMPARISON: 06/18/2020 TECHNIQUE: PA and lateral views submitted. HISTORY: Night sweats FINDINGS: The lungs are clear and there is no pneumothorax, pleural effusion, or focal pneumonia. Heart size normal and no overt failure. Osseous structures demonstrate hypertrophic and degenerative changes of the spine. Underlying emphysematous changes with biapical pleural thickening. Diffuse osteopenia and AC joint arthropathy. IMPRESSION: 1. No acute process.
== END | disposition home or self-care (01) ==
LOC: RADXRMAIN 11:38
PROVIDERS: ATTEND Family Medicine
DX: R61 Generalized hyperhidrosis (principal)
CPT/HCPCS: 71046

== ENCOUNTER 2024-01-10 16:31 | Emergency (ER) | payer MEDICARE ==
[2024-01-10 16:35] VITALS: TEMP 98.4
--- NOTE | 2024-01-10 16:52 | ED ---
General Adult HPI - General Chief complaint: Shortness of Breath Stated complaint: SOB, vomitting Time Seen by Provider: 01/10/24 16:35 Source: patient, RN notes reviewed Mode of arrival: ambulatory Limitations: no limitations - History of Present Illness Initial comments: 74-year-old female with a past medical history significant for hyperlipidemia presents to the emergency department for evaluation of shortness of breath. Patient states that she has been experiencing this over the past 1 to 2 weeks. She notes that she feels like she cannot catch her breath. She states that this has been worse over the past 1 to 2 days. She notes that it has been constant throughout the day worse with movements. She does admit to 2 episodes of vomiting today. Denies any abdominal pain. She denies any significant chest pain or pressure. Denies recent illness, fever. - Related Data Home Medications Medication Instructions Recorded Confirmed ALPRAZolam [Xanax] 1 tab PO DAILY PRN 07/04/21 04/10/23 Aspirin 81 mg PO DAILY 07/04/21 04/10/23 Cholecalciferol [Vitamin D3 (10 10 mcg PO DAILY 07/04/21 04/10/23 Mcg = 400 Iu)] Garlic 1 each PO DAILY 07/04/21 04/10/23 Multivitamins, Thera [Multivitamin 1 tab PO DAILY 07/04/21 04/10/23 (formulary)] Naproxen Sodium [Aleve] 220 mg PO DAILY 07/04/21 04/10/23 Ubidecarenone [Co Q-10] 100 mg PO DAILY 07/04/21 04/10/23 Ezetimibe [Zetia] 10 mg PO DAILY 04/10/23 04/10/23 Pravastatin Sodium [Pravachol] 40 mg PO DAILY 04/10/23 04/10/23 Previous Rx's Medication Instructions Recorded Omeprazole [PriLOSEC] 40 mg PO -BRKFST #90 cap 04/15/23 Allergies Allergy/AdvReac Type Severity Reaction Status Date / Time latex Allergy Rash/Hives Verified 01/10/24 16:35 paroxetine [From Paxil] Allergy Rash/Hives Verified 01/10/24 16:35 shellfish derived [Shellfish] Allergy Rash/Hives Verified 01/10/24 16:35 tetracycline Allergy Rash/Hives Verified 01/10/24 16:35 Review of Systems ROS Statement: Those systems with pertinent positive or pertinent negative responses have been documented in the HPI. ROS Other: All systems not noted in ROS Statement are negative. Past Medical History Past Medical History: Hyperlipidemia History of Any Multi-Drug Resistant Organisms: None Reported Past Surgical History: Back Surgery Additional Past Surgical History / Comment(s): spinal fusion Past Psychological History: Anxiety Smoking Status: Never smoker Past Alcohol Use History: Occasional Past Drug Use History: Marijuana General Exam Limitations: no limitations General appearance: alert, in no apparent distress Head exam: Present: atraumatic, normocephalic, normal inspection Eye exam: Present: normal appearance, PERRL, EOMI. Absent: scleral icterus, conjunctival injection, periorbital swelling ENT exam: Present: normal exam, mucous membranes moist Neck exam: Present: normal inspection. Absent: tenderness, meningismus, lymphadenopathy Respiratory exam: Present: normal lung sounds bilaterally. Absent: respiratory distress, wheezes, rales, rhonchi, stridor Cardiovascular Exam: Present: regular rate, normal rhythm, normal heart sounds. Absent: systolic murmur, diastolic murmur, rubs, gallop, clicks GI/Abdominal exam: Present: soft. Absent: distended, tenderness, guarding, rebound, rigid Extremities exam: Present: normal inspection, full ROM, normal capillary refill. Absent: tenderness, pedal edema, joint swelling, calf tenderness Back exam: Present: normal inspection Neurological exam: Present: alert, oriented X3 Psychiatric exam: Present: normal affect, normal mood Skin exam: Present: warm, dry, intact, normal color. Absent: rash Course Vital Signs 01/10/24 01/10/24 01/10/24 16:32 17:15 19:03 Temperature 98.4 F Pulse Rate 73 62 60 Respiratory 18 17 18 Rate Blood Pressure 177/90 188/97 176/99 O2 Sat by Pulse 97 98 98 Oximetry Medical Decision Making - Medical Decision Making Was pt. sent in by a medical professional or institution (, PA, MEAT GRADING MACHINE OPERATOR, urgent care, hospital, or detention...) When possible be specific @ -No Did you speak to anyone other than the patient for history (EMS, parent, family, police, friend...)? What history was obtained from this source @ -No Did you review nursing and triage notes (agree or disagree)? Why? @ -I reviewed and agree with nursing and triage notes Were old charts reviewed (outside hosp., previous admission, EMS record, old EKG, old radiological studies, urgent care reports/EKG's, detention records)? Report findings @ -No old charts were reviewed Differential Diagnosis (chest pain, altered mental status, abdominal pain women, abdominal pain men, vaginal bleeding, weakness, fever, dyspnea, syncope, headache, dizziness, GI bleed, back pain, seizure, CVA, palpatations, mental health, musculoskeletal)? @ -Differential Dyspnea: Coronary syndrome, arrhythmia, tamponade, asthma, COPD, pulmonary embolism, pneumonia, pneumothorax, pulmonary effusion, anaphylaxis, diabetic ketoacidosis, flailed chest, pulmonary contusion, diaphragmatic rupture, anemia, neuromuscular, this is not meant to be an all-inclusive list. EKG interpreted by me (3pts min.). @ -EKG at 1650 shows sinus rhythm rate 63, MS 204,QRS 81, QT/QTc 410-418 X-rays interpreted by me (1pt min.). @ -Chest x-ray shows no acute process CT interpreted by me (1pt min.). @ -None done U/S interpreted by me (1pt. min.). @ -None done What testing was considered but not performed or refused? (CT, X-rays, U/S, labs)? Why? @ -None What meds were considered but not given or refused? Why? @ -None Did you discuss the management of the patient with other professionals (professionals i.e. , PA, MEAT GRADING MACHINE OPERATOR, lab, RT, psych nurse, high school social studies tutor, machine room operator, teacher, motorcycle police officer, outsole caser)? Give summary @ -No Was smoking cessation discussed for >3mins.? @ -No Was critical care preformed (if so, how long)? @ -No Were there social determinants of health that impacted care today? How? (Homelessness, low income, unemployed, alcoholism, drug addiction, transportatio n, low edu. Level, literacy, decrease access to med. care, group home, rehab)? @ -No Was there de-escalation of care discussed even if they declined (Discuss DNR or withdrawal of care, Hospice)? DNR status @ -No What co-morbidities impacted this encounter? (DM, HTN, Smoking, COPD, CAD, Cancer, CVA, ARF, Chemo, Hep., AIDS, mental health diagnosis, sleep apnea, morbid obesity)? @ -None Was patient admitted / discharged? Hospital course, mention meds given and route, prescriptions, significant lab abnormalities, going to OR and other pertinent info. @ -Discharge. Patient presented to the emergency department for evaluation of shortness of breath. Laboratory studies obtained revealing no significant leukocytosis.D-dimer negative at 0.27, negative troponin; UA shows no evidence of infectious process. Chest x-ray obtained shows no acute infiltrate. Patient O2 saturation stable on room air. She will be discharged home. She is understanding and agreeable with this. Patient stable at time of discharge. Case discussed with Dr. Aiken Undiagnosed new problem with uncertain prognosis? @ -No Drug Therapy requiring intensive monitoring for toxicity (Heparin, Nitro, Insulin, Cardizem)? @ -No Were any procedures done? @ -No Diagnosis/symptom? @ -D dyspnea Acute, or Chronic, or Acute on Chronic? @ -acute Uncomplicated (without systemic symptoms) or Complicated (systemic symptoms)? @ -uncomplicated Side effects of treatment? @ -No Exacerbation, Progression, or Severe Exacerbation? @ -No Poses a threat to life or bodily function? How? (Chest pain, [place], [place], pneumonia, PE, COPD, DKA, ARF, appy, cholecystitis, CVA, Diverticulitis, Homicidal, Suicidal, threat to staff... and all critical care pts) @ -No - Lab Data Result diagrams: 01/10/24 16:50 01/10/24 16:50 Lab Results 01/10/24 01/10/24 01/10/24 Range/Units 16:50 16:50 16:50 WBC 9.1 (3.8-10.6) k/uL RBC 4.59 (3.80-5.40) m/uL Hgb 14.3 (11.4-16.0) gm/dL Hct 41.8 (34.0-46.0) % MCV 91.1 (80.0-100.0) fL MCH 31.1 (25.0-35.0) pg MCHC 34.1 (31.0-37.0) g/dL RDW 12.6 (11.5-15.5) % Plt Count 239 (150-450) k/uL MPV 7.7 Neutrophils % 78 % Lymphocytes % 13 % Monocytes % 7 % Eosinophils % 1 % Basophils % 0 % Neutrophils # 7.0 (1.3-7.7) k/uL Lymphocytes # 1.1 (1.0-4.8) k/uL Monocytes # 0.6 (0-1.0) k/uL Eosinophils # 0.1 (0-0.7) k/uL Basophils # 0.0 (0-0.2) k/uL PT 9.9 L (10.0-12.5) sec INR 0.9 (<1.2) APTT 23.1 (22.0-30.0) sec D-Dimer (<0.60) mg/L FEU Sodium 135 L (137-145) mmol/L Potassium 4.0 (3.5-5.1) mmol/L Chloride 107 (98-107) mmol/L Carbon Dioxide 20 L (22-30) mmol/L Anion Gap 8 mmol/L BUN 21 H (7-17) mg/dL Creatinine 0.48 L (0.52-1.04) mg/dL Est GFR (CKD-EPI)AfAm >90 (>60 ml/min/1.73 sqM) Est GFR (CKD-EPI)NonAf >90 (>60 ml/min/1.73 sqM) Glucose 105 H (74-99) mg/dL Calcium 9.8 (8.4-10.2) mg/dL Magnesium 2.1 (1.6-2.3) mg/dL Total Bilirubin 0.9 (0.2-1.3) mg/dL AST 27 (14-36) U/L ALT 21 (4-34) U/L Alkaline Phosphatase 51 (38-126) U/L Troponin I (0.000-0.034) ng/mL NT-Pro-B Natriuret Pep 237 pg/mL Total Protein 6.7 (6.3-8.2) g/dL Albumin 4.5 (3.5-5.0) g/dL Urine Color Urine Appearance (Clear) Urine pH (5.0-8.0) Ur Specific [place] (1.001-1.035) Urine Protein (Negative) Urine Glucose (UA) (Negative) Urine Ketones (Negative) Urine Blood (Negative) Urine Nitrite (Negative) Urine Bilirubin (Negative) Urine Urobilinogen (<2.0) mg/dL Ur Leukocyte Esterase (Negative) Urine RBC (0-5) /hpf Urine WBC (0-5) /hpf Urine Mucus (None) /hpf 01/10/24 01/10/24 01/10/24 Range/Units 16:50 16:50 18:56 WBC (3.8-10.6) k/uL RBC (3.80-5.40) m/uL Hgb (11.4-16.0) gm/dL Hct (34.0-46.0) % MCV (80.0-100.0) fL MCH (25.0-35.0) pg MCHC (31.0-37.0) g/dL RDW (11.5-15.5) % Plt Count (150-450) k/uL MPV Neutrophils % % Lymphocytes % % Monocytes % % Eosinophils % % Basophils % % Neutrophils # (1.3-7.7) k/uL Lymphocytes # (1.0-4.8) k/uL Monocytes # (0-1.0) k/uL Eosinophils # (0-0.7) k/uL Basophils # (0-0.2) k/uL PT (10.0-12.5) sec INR (<1.2) APTT (22.0-30.0) sec D-Dimer 0.27 (<0.60) mg/L FEU Sodium (137-145) mmol/L Potassium (3.5-5.1) mmol/L Chloride (98-107) mmol/L Carbon Dioxide (22-30) mmol/L Anion Gap mmol/L BUN (7-17) mg/dL Creatinine (0.52-1.04) mg/dL Est GFR (CKD-EPI)AfAm (>60 ml/min/1.73 sqM) Est GFR (CKD-EPI)NonAf (>60 ml/min/1.73 sqM) Glucose (74-99) mg/dL Calcium (8.4-10.2) mg/dL Magnesium (1.6-2.3) mg/dL Total Bilirubin (0.2-1.3) mg/dL AST (14-36) U/L ALT (4-34) U/L Alkaline Phosphatase (38-126) U/L Troponin I <0.012 (0.000-0.034) ng/mL NT-Pro-B Natriuret Pep pg/mL Total Protein (6.3-8.2) g/dL Albumin (3.5-5.0) g/dL Urine Color Colorless Urine Appearance Clear (Clear) Urine pH 7.0 (5.0-8.0) Ur Specific [place] 1.012 (1.001-1.035) Urine Protein Negative (Negative) Urine Glucose (UA) Negative (Negative) Urine Ketones 2+ H (Negative) Urine Blood Negative (Negative) Urine Nitrite Negative (Negative) Urine Bilirubin Negative (Negative) Urine Urobilinogen <2.0 (<2.0) mg/dL Ur Leukocyte Esterase Small H (Negative) Urine RBC 1 (0-5) /hpf Urine WBC 4 (0-5) /hpf Urine Mucus Occasional H (None) /hpf Disposition Clinical Impression: Dyspnea, Nausea & vomiting Disposition: HOME SELF-CARE Condition: Stable Instructions (If sedation given, give patient instructions): Dyspnea (ED) Additional Instructions: Please follow up with your retort furnace helper and primary care provider. Return to the emergency department for new or worsening symptoms. Is patient prescribed a controlled substance at d/c from ED?: No Referrals: Roderick Montiel DO [Primary Care Provider] - 1-2 days
[2024-01-10 17:15] LABS: Basophils % (A) 0 %; Eosinophils # (A) 0.1 k/uL (0-0.7); Eosinophils % (A) 1 %; HCT 41.8 % (34.0-46.0); HGB 14.3 gm/dL (11.4-16.0); Lymphocytes # (A) 1.1 k/uL (1.0-4.8); Lymphocytes % (A) 13 %; MCH 31.1 pg (25.0-35.0); MCHC 34.1 g/dL (31.0-37.0); MCV 91.1 fL (80.0-100.0); Mean Platelet Volume 7.7; Monocytes # (A) 0.6 k/uL (0-1.0); Monocytes % (A) 7 %; Neutrophils % (A) 78 %; Platelet Count 239 k/uL (150-450); RBC 4.59 m/uL (3.80-5.40); RDW 12.6 % (11.5-15.5); WBC 9.1 k/uL (3.8-10.6)
--- NOTE | 2024-01-10 17:20 | XR ---
EXAMINATION TYPE: XR chest 2V DATE OF EXAM: 01/10/2024 COMPARISON: 08/05/2023 HISTORY: Shortness of breath TECHNIQUE: Frontal and lateral views of the chest are obtained. FINDINGS: Scattered senescent parenchymal changes noted. Hyperinflation compatible with COPD. No evidence for infiltrate. No evidence for atelectasis. Heart size is stable. Mediastinal structures are stable and grossly unremarkable. No evidence for hilar prominence. Degenerative changes dorsal spine. IMPRESSION: 1. No evidence for acute pulmonary disease.
[2024-01-10 17:25] LABS: INR 0.9 (<1.2); Partial Thromboplastin Time 23.1 sec (22.0-30.0); Prothrombin Time 9.9 sec (10.0-12.5)
[2024-01-10 18:03] LABS: ALT 21 U/L (4-34); AST 27 U/L (14-36); African American GFR (CKD) >90 (>60 ml/min/1.73 sqM); Albumin 4.5 g/dL (3.5-5.0); Alkaline Phosphatase 51 U/L (38-126); Anion Gap 8 mmol/L; Blood Urea Nitrogen 21 mg/dL (7-17); Calcium 9.8 mg/dL (8.4-10.2); Carbon Dioxide 20 mmol/L (22-30); Chloride 107 mmol/L (98-107); Glucose 105 mg/dL (74-99); Magnesium 2.1 mg/dL (1.6-2.3); Non-African American GFR(CKD) >90 (>60 ml/min/1.73 sqM); Sodium 135 mmol/L (137-145); Total Bilirubin 0.9 mg/dL (0.2-1.3); Total Protein 6.7 g/dL (6.3-8.2)
[2024-01-10 18:12] LABS: NT-Pro-B-Type Natriuretic Pept 237 pg/mL
[2024-01-10 19:05] VITALS: BP 176/99; PULSE 60; RESP 18
[2024-01-10 19:19] LABS: Appearance,Urine Clear (Clear); Bilirubin,Urine Negative (Negative); Blood,Urine Negative (Negative); Color,Urine Colorless; Glucose,Urine (UA) Negative (Negative); Ketones,Urine 2+ (Negative); Leukocyte Esterase,Urine Small (Negative); Mucus,Urine Occasional /hpf; Nitrite,Urine Negative (Negative); Protein,Urine Negative (Negative); RBC,Urine 1 /hpf (0-5); Specific Gravity,Urine 1.012 (1.001-1.035); Urobilinogen,Urine <2.0 mg/dL (<2.0); WBC,Urine 4 /hpf (0-5)
== END 2024-01-10 19:27 | disposition home or self-care (01) ==
LOC: EC 16:31
DX: R06.00 Dyspnea, unspecified (principal); R11.2 Nausea with vomiting, unspecified; Z91.040 Latex allergy status; Z91.013 Allergy to seafood; Z88.8 Allergy status to other drugs, medicaments and biological substances
CPT/HCPCS: 36415; 71046; 80053; 81001; 83735; 83880; 84484; 85025; 85379; 85610; 85730; 93005; 99285

== ENCOUNTER → 2024-02-10 | Outpatient (CLI) | payer MEDICARE ==
--- NOTE | 2024-03-12 13:16 | CA ---
Transthoracic Echo Report Name: Tara Paige Age: 74 Gender: F : 1950 Exam Date: 02/10/2024 13:06 Exam Location: [facility] Ht (in): 67 Wt (lb): 122 Ordering Physician: Attending/Referring Phys: Heel Trimmer Rosangela Infante RDCS Procedure CPT: Indications: Cardiac Hx: HTN Technical Quality: Good Contrast 1: Total Dose (mL): Contrast 2: Total Dose (mL): MEASUREMENTS (Male / Female) Normal Values 2D ECHO LV Diastolic Diameter PLAX 4.3 cm 4.2 - 5.9 / 3.9 - 5.3 cm LV Systolic Diameter PLAX 3.1 cm IVS Diastolic Thickness 1.1 cm 0.6 - 1.0 / 0.6 - 0.9 cm LVPW Diastolic Thickness 1.1 cm 0.6 - 1.0 / 0.6 - 0.9 cm LV Relative Wall Thickness 0.5 RV Internal Dim ED PLAX 2.8 cm LA Systolic Diameter LX 3.6 cm 3.0 - 4.0 / 2.7 - 3.8 cm LV Diastolic Volume MOD BP 60.8 cm??? 67 - 155 / 56 - 104 cm??? LV Systolic Volume MOD BP 22.9 cm??? 22 - 58 / 19 - 49 cm??? LV Ejection Fraction MOD BP 62.4 % >= 55 % LV Cardiac Index MOD BP 1177.7 cm???/min???m??? LV Diastolic Volume MOD 4C 64.5 cm??? LV Systolic Volume MOD 4C 26.4 cm??? LV Ejection Fraction MOD 4C 59.2 % LV Cardiac Index MOD 4C 1185.6 cm???/min???m??? LV Diastolic Length 4C 7.4 cm LV Systolic Length 4C 5.6 cm LV Diastolic Volume MOD 2C 57.0 cm??? LV Systolic Volume MOD 2C 22.5 cm??? LV Ejection Fraction MOD 2C 60.6 % LV Cardiac Index MOD 2C 1073.7 cm???/min???m??? LV Diastolic Length 2C 6.7 cm LV Systolic Length 2C 6.1 cm LA Volume 44.1 cm??? 18 - 58 / 22 - 52 cm??? LA Volume Index 27.4 cm???/m??? 16 - 28 cm???/m??? M-MODE Aortic Root Diameter MM 2.8 cm AV Cusp Separation MM 1.5 cm DOPPLER AV Peak Velocity 140.0 cm/s AV Peak Gradient 7.8 mmHg AI Peak Velocity 285.4 cm/s AI Peak Gradient 32.6 mmHg AI Pressure Half Time 1716.8 ms MV Area PHT 1.9 cm??? Mitral E Point Velocity 38.9 cm/s Mitral A Point Velocity 94.5 cm/s Mitral E to A Ratio 0.4 MV Deceleration Time 405.5 ms TR Peak Velocity 219.3 cm/s TR Peak Gradient 19.2 mmHg Right Ventricular Systolic Press 24.2 mmHg FINDINGS Left Ventricle Left ventricular ejection fraction is estimated at 60-65 %. Left ventricular cavity size normal. Mildly increased septal wall thickness. Mildly increased posterior wall thickness. Grade 1 diastolic dysfunction Right Ventricle Normal right ventricular size and function. Right ventricular systolic pressure within normal limits. Right Atrium Normal right atrial size. No right atrial thrombus or mass seen. Left Atrium Normal left atrial size. No left atrial thrombus or mass present. Mitral Valve Structurally normal mitral valve. Trace mitral regurgitation. Aortic Valve Trileaflet aortic valve. Mild aortic regurgitation. Tricuspid Valve Structurally normal tricuspid valve. Mild tricuspid regurgitation. Pulmonic Valve Structurally normal pulmonic valve. Trace pulmonic regurgitation. Pericardium No pericardial effusion. No pleural effusion. Aorta Normal size aortic root and proximal ascending aorta. CONCLUSIONS LVEF estimated at 65% Mild concentric LVH No obvious regional wall motion abnormality Grade 1 diastolic dysfunction No significant chamber size abnormality. No significant valvular dysfunction Previewed by: Dr Logan Clay (Electronically Signed) Final Date: 10 February 2024 17:42
== END | disposition home or self-care (01) ==
LOC: RADECHMAIN 12:47
PROVIDERS: ATTEND Internal Medicine Cardiovascular Disease
DX: R42 Dizziness and giddiness (principal); R09.89 Other specified symptoms and signs involving the circulatory and respiratory systems; I10 Essential (primary) hypertension
CPT/HCPCS: 93306

== ENCOUNTER → 2024-06-08 | Outpatient (CLI) | payer MEDICARE ==
--- NOTE | 2024-06-13 05:22 | MM ---
Reason for Exam: Screening (asymptomatic). Last mammogram was performed 1 year(s) and 1 month(s) ago. Patient History: Menarche at age 17. Patient has no children. Postmenopausal. Patient has history of breast feeding. Hormonal Contraceptives for 3 months. 1985, Benign Cyst Aspiration on the right side. Maternal aunt had breast cancer. Risk Values: Cassidy 5 year model risk: 1.8%. NCI Lifetime model risk: 4.1%. Prior Study Comparison: 04/09/2021 Bilateral Screening Mammogram, [facility]. 05/21/2022 Bilateral MG 3D screening mammo w/cad, [facility]. 05/13/2023 Bilateral MG 3D screening mammo w/cad, [facility]. Tissue Density: The breasts are heterogeneously dense, which may obscure small masses. Findings: Analyzed By CAD. The pattern is symmetrical. Identified by CAD there is a irregular density in the subareolar left breast. Additional workup with compression views. No suspicious groups of microcalcifications, spiculated or lobular masses, architectural distortion or other secondary signs of malignancy are mammographically apparent. Overall Assessment: Incomplete: need additional imaging evaluation, BI-RAD 0 Management: Diagnostic Mammogram of the left breast. A negative mammogram report should not preclude additional follow up of suspicious palpable abnormalities. Patient should continue monthly self breast exam. A clinical breast exam by your physician is recommended on an annual basis and results should be correlated with mammographic findings. Note on Cassidy scores and lifetime risk: 1. A Cassidy score greater than 3% is considered moderate risk. If this is the case, consider specialist referral to assess eligibility for a risk reducing agent. 2. If overall lifetime risk for the development of breast cancer is 20% or higher, the patient may qualify for future screening with alternating mammogram and breast MRI. [facility], , 06/13/2024 5:20 AM. Electronically signed and approved by: Danny Daniels D.O. Radiologis
== END | disposition home or self-care (01) ==
LOC: RADMAMWWP 08:57
PROVIDERS: ATTEND Family Medicine
DX: Z12.31 Encounter for screening mammogram for malignant neoplasm of breast (principal); Z78.0 Asymptomatic menopausal state; Z80.3 Family history of malignant neoplasm of breast; R92.333 Mammographic heterogeneous density, bilateral breasts
CPT/HCPCS: 77063; 77067

== ENCOUNTER → 2024-06-21 | Outpatient (CLI) | payer MEDICARE ==
--- NOTE | 2024-06-21 14:02 | MM ---
Reason for Exam: Follow-up at short interval from prior study. Last screening mammogram was performed less than 1 month ago. Patient History: Menarche at age 17. Patient has no children. Postmenopausal. Patient has history of breast feeding. Hormonal Contraceptives for 3 months. 1985, Benign Cyst Aspiration on the right side. Maternal aunt had breast cancer. Risk Values: Cassidy 5 year model risk: 1.8%. NCI Lifetime model risk: 4.1%. Prior Study Comparison: 05/21/2022 Bilateral MG 3D screening mammo w/cad, [facility]. 05/13/2023 Bilateral MG 3D screening mammo w/cad, [facility]. 06/08/2024 Bilateral MG 3D screening mammo w/cad, [facility]. Tissue Density: Left: The breasts are heterogeneously dense, which may obscure small masses. Findings: Analyzed By CAD. The questioned anterior focal asymmetry disperses on additional views compatible with superimposition shadow. Overall Assessment: Benign, BI-RAD 2 Management: Screening Mammogram of both breasts in 1 year. Results were given to the patient verbally at the time of exam. Patient should continue monthly self-breast exams. A clinical breast exam by your physician is recommended on an annual basis. This exam should not preclude additional follow-up of suspicious palpable abnormalities. Note on Cassidy scores and lifetime risk: 1. A Cassidy score greater than 3% is considered moderate risk. If this is the case, consider specialist referral to assess eligibility for a risk reducing agent. 2. If overall lifetime risk for the development of breast cancer is 20% or higher, the patient may qualify for future screening with alternating mammogram and breast MRI. [facility], , 06/21/2024 1:59 PM. Electronically signed and approved by: Ellis Suero M.D. Radiologist
== END | disposition home or self-care (01) ==
LOC: RADMAMWWP 13:16
PROVIDERS: ATTEND Family Medicine
DX: R92.8 Other abnormal and inconclusive findings on diagnostic imaging of breast (principal); Z78.0 Asymptomatic menopausal state; Z80.3 Family history of malignant neoplasm of breast; R92.333 Mammographic heterogeneous density, bilateral breasts
CPT/HCPCS: 77065; G0279; 77061